=== PATIENT | male | born 1995 | race Caucasian/White ===

== ENCOUNTER 2019-10-21 18:35 | Emergency (ER) | payer SELFPAY ==
[2019-10-21 18:41] VITALS: BP 132/84
[2019-10-21] MEDS ORDERED: LIDOCAINE TOPICAL 4% 50 ML BOTTLE MM STA (19:03)
[2019-10-21] MEDS ORDERED: PENICILLIN VK 250 MG TABLET PO STA (19:48)
[2019-10-21] MEDS ORDERED: IBUPROFEN 800 MG TABLET PO STA (19:48)
--- NOTE | 2019-10-21 19:50 | ED Physician Documentation ---
History of Present Illness - Stated complaint Stated Complaint: TOOTH PX - Chief complaint Chief Complaint: Heent - History obtained from History obtained from: Patient, Family - History of Present Illness Timing: How many weeks ago (several) Pain level max: 6 Pain level now: 6 - Additonal information Additional information: Patient states that he has chronic dental issues. States his left lower molar is infected. Increasing pain. He has been able unable to see his dentist yet. No fevers. No facial swelling. No swelling under the jawline or tongue. Worse with eating and drinking. Nothing makes it better Review of Systems Constitutional: denies: Fever, Chills GI: denies: Vomiting Skin: denies: Rash PD PAST MEDICAL HISTORY - Past Medical History Past Medical History: Yes HEENT: Other - Past Surgical History Past Surgical History: Yes HEENT: Other - Present Medications Home Medications: Ambulatory Orders Medication Instructions Recorded Confirmed Clindamycin [Cleocin] 300 mg PO TID 5 Days capsule 05/01/16 Penicillin V Potassium 500 mg PO Q6HR #40 tablet 10/21/19 - Allergies Allergies/Adverse Reactions: Allergies Allergy/AdvReac Type Severity Reaction Status Date / Time No Known Drug Allergies Allergy Verified 10/21/19 18:37 - Social History Does the pt smoke?: Yes Smoking Status: Current every day smoker Does the pt drink ETOH?: Yes Does the pt have substance abuse?: No - Immunizations Immunizations are current?: Yes Immunizations: TDAP >10years/unknown - POLST Patient has POLST: No PD ED PE NORMAL - Vitals Vital signs reviewed: Yes - General General: Alert and oriented X 3, No acute distress - HEENT HEENT: Moist mucous membranes - Neck Neck: Supple, no meningeal sign - Cardiac Cardiac: RRR - Respiratory Respiratory: No respiratory distress, Clear bilaterally - Derm Derm: Warm and dry - Neuro Neuro: Alert and oriented X 3 PD ED PE EXPANDED - HEENT HEENT Visual: 1 - tenderness (Diffuse dental decay. No gingival swelling.No drainable abscess.) Results - Vitals Vitals: Vital Signs - 24 hr 10/21/19 18:38 Temperature 36.8 C Heart Rate 137 H Respiratory 16 Rate Blood Pressure 132/84 H O2 Saturation 99 Oxygen O2 Source Room air PD MEDICAL DECISION MAKING - ED course Complexity details: considered differential, d/w patient, d/w family ED course: 24-year-old male presents with dental pain. Will place on antibiotics for home. Well-appearing, nontoxic. Afebrile. No Ludewig's angina. No facial swelling or cellulitis. Patient counseled regarding signs and symptoms for which I believe and urgent re-evaluation would be necessary. Patient with good understanding of and agreement to plan and is comfortable going home at this time This document was made in part using voice recognition software. While efforts are made to proofread this document, sound alike and grammatical errors may occur. Departure - Departure Disposition: 01 Home, Self Care Clinical Impression: Dental abscess Condition: Good Instructions: ED Abscess Dental Follow-Up: your,dentist within 1 week [Other] Prescriptions: Penicillin V Potassium 500 mg PO Q6HR #40 tablet Comments: Take all antibiotics until gone. Return if you worsen. Follow-up with your dentist within 1 week. Discharge Date/Time: 10/21/19 19:55
== END 2019-10-21 19:55 | disposition home or self-care (01) ==
LOC: ED 18:35
DX: K04.7 Periapical abscess without sinus (principal); K02.9 Dental caries, unspecified; F17.200 Nicotine dependence, unspecified, uncomplicated
CPT/HCPCS: 99282; 99284; A9270

== ENCOUNTER 2020-01-22 00:51 | Outpatient (CLI) | payer SELFPAY | END 2020-01-22 00:52 | disposition EMS.NT | LOC: EMS 00:51 | PROVIDERS: ATTEND Surgery | DX: M54.5 Low back pain (principal) ==

== ENCOUNTER 2020-01-22 01:45 | Emergency (ER) | payer SELFPAY ==
--- NOTE | 2020-01-22 02:00 | ED Physician Documentation ---
History of Present Illness - Stated complaint Stated Complaint: BK PX - Chief complaint Chief Complaint: Back Pain - History obtained from History obtained from: Patient (the patient is a 24 y/o m who p/w sudden onset of right flank pain that radiates to the groin with dysuria and urinary frequency. denies any hx of previous similar episodes. reports nausea. denies any other symptoms.) Review of Systems Constitutional: reports: Reviewed and negative Eyes: reports: Reviewed and negative Ears: reports: Reviewed and negative Nose: reports: Reviewed and negative Throat: reports: Reviewed and negative Cardiac: reports: Reviewed and negative Respiratory: reports: Reviewed and negative GI: reports: Reviewed and negative : reports: Hesitancy, Other (right flank pain) Skin: reports: Reviewed and negative Musculoskeletal: reports: Reviewed and negative Neurologic: reports: Reviewed and negative Psychiatric: reports: Reviewed and negative Endocrine: reports: Reviewed and negative Immunocompromised: reports: Reviewed and negative PD PAST MEDICAL HISTORY - Past Medical History HEENT: Other Psych: Anxiety - Past Surgical History Past Surgical History: Yes HEENT: Other - Present Medications Home Medications: Ambulatory Orders Medication Instructions Recorded Confirmed Clindamycin [Cleocin] 300 mg PO TID 5 Days capsule 05/01/16 Penicillin V Potassium 500 mg PO Q6HR #40 tablet 10/21/19 Hydrocodone/Acetaminophen [[place] 1 each PO Q6HR PRN #10 tablet 01/22/20 5-325 Tablet] Ondansetron Odt [Zofran] 4 mg TL Q6H PRN #10 tablet 01/22/20 Tamsulosin HCl [Flomax] 0.4 mg PO DAILY #7 cap.er.24h 01/22/20 - Allergies Allergies/Adverse Reactions: Allergies Allergy/AdvReac Type Severity Reaction Status Date / Time No Known Drug Allergies Allergy Verified 01/22/20 01:52 - Social History Does the pt smoke?: Yes Smoking Status: Current every day smoker Does the pt drink ETOH?: Yes Does the pt have substance abuse?: No - Immunizations Immunizations are current?: Yes Immunizations: TDAP >10years/unknown - POLST Patient has POLST: No PD ED PE NORMAL - Vitals Vital signs reviewed: Yes - General General: Alert and oriented X 3, No acute distress, Well developed/nourished - HEENT HEENT: Atraumatic, PERRL, Moist mucous membranes - Neck Neck: Supple, no meningeal sign, No JVD - Cardiac Cardiac: RRR, No murmur, Strong equal pulses - Respiratory Respiratory: No respiratory distress, Clear bilaterally - Abdomen Abdomen: Normal bowel sounds, Soft, Non tender, Non distended, No organomegaly, Other (+ for right sided cva tenderness) - Male Male : Other (testicles descended bilaterally, no blood at the urethral meatu s, no inguinal massed or lad.) - Derm Derm: Warm and dry - Extremities Extremities: No deformity - Neuro Neuro: Alert and oriented X 3 - Psych Psych: Normal mood, Normal affect Results - Vitals Vitals: Vital Signs - 24 hr 01/22/20 01/22/20 01:50 03:05 Temperature 36.9 C Heart Rate 87 72 Respiratory 20 16 Rate Blood Pressure 131/89 H 125/80 O2 Saturation 98 96 Oxygen O2 Source Room air - Labs Labs: Laboratory Tests 01/22/20 01/22/20 01/22/20 02:00 02:00 02:00 WBC 16.7 H RBC 5.80 Hgb 17.1 Hct 49.6 MCV 85.5 MCH 29.5 MCHC 34.5 RDW 11.9 L Plt Count 336 MPV 10.3 Neut # (Auto) 13.0 H Lymph # (Auto) 2.5 [place] # (Auto) 0.7 Eos # (Auto) 0.3 Baso # (Auto) 0.1 Absolute Nucleated RBC 0.00 Nucleated RBC % 0.0 Sodium 137 Potassium 3.4 L Chloride 104 Carbon Dioxide 25 Anion Gap 8.0 BUN 12 Creatinine 0.9 Estimated GFR (MDRD) 104 Glucose 135 H Calcium 9.2 Total Bilirubin 0.5 AST 24 ALT 55 Alkaline Phosphatase 73 Total Protein 7.7 Albumin 4.5 Globulin 3.2 Albumin/Globulin Ratio 1.4 Lipase 24 Urine Color DARK YELLOW Urine Clarity CLEAR Urine pH 6.0 Ur Specific [place] >=1.030 H Urine Protein TRACE Urine Glucose (UA) NEGATIVE Urine Ketones NEGATIVE Urine Occult Blood LARGE H Urine Nitrite NEGATIVE Urine Bilirubin NEGATIVE Urine Urobilinogen 0.2 (NORMAL) Ur Leukocyte Esterase NEGATIVE Urine RBC TNTC H Urine WBC 0-3 Ur Squamous Epith Cells NONE SEEN Urine Bacteria None Seen Ur Microscopic Review INDICATED Urine Culture Comments NOT INDICATED PD MEDICAL DECISION MAKING - ED course Complexity details: re-evaluated patient (03:32 pain resolved. patient tolerated po challenge, noted that patient has a leukocytosis, no fever, pain controlled, able to void without complication. will follow up with pcp as needed or return to the ed with fevers or any concerns. ), considered differential (nephrolithiasis) Departure - Departure Disposition: 01 Home, Self Care Clinical Impression: Kidney stone on right side Condition: Stable Instructions: Kidney Stones Follow-Up: your, doctor [Other] Prescriptions: Hydrocodone/Acetaminophen [[place] 5-325 Tablet] 1 each PO Q6HR PRN #10 tablet PRN Reason: Pain Ondansetron Odt [Zofran] 4 mg TL Q6H PRN #10 tablet PRN Reason: Nausea / Vomiting Tamsulosin HCl [Flomax] 0.4 mg PO DAILY #7 cap.er.24h
[2020-01-22] MEDS ORDERED: ONDANSETRON 4 MG/2 ML VIAL IVP STA (02:07)
[2020-01-22] MEDS ORDERED: SODIUM CHLORIDE 0.9% 1,000 ML IV ONE ×2 (02:07→03:12)
[2020-01-22] MEDS ORDERED: KETOROLAC 30 MG/ML VIAL IVP STA (02:07)
[2020-01-22 02:13] LABS: BASOPHILS # (AUTO) 0.1 10^3/uL (0.0-0.1); BASOPHILS % (AUTO) 0.7 %; EOSINOPHILS # (AUTO) 0.3 10^3/uL (0.0-0.7); EOSINOPHILS % (AUTO) 1.8 %; GLUCOSE, URINE (UA) NEGATIVE (NEGATIVE); HGB - HEMOGLOBIN 17.1 g/dL (14.0-18.0); KETONES,URINE (UA) NEGATIVE (NEGATIVE); LEUKOCYTE ESTERASE, URINE NEGATIVE (NEGATIVE); LYMPHOCYTES # (AUTO) 2.5 10^3/uL (1.5-3.5); LYMPHOCYTES % (AUTO) 14.6 %; MEAN CORPUSCULAR HEMOGLOBIN 29.5 pg (27.0-31.0); MEAN CORPUSCULAR HGB CONC 34.5 g/dL (32.0-36.0); MEAN CORPUSCULAR VOLUME 85.5 fL (80.0-94.0); MEAN PLATELET VOLUME 10.3 fL (7.4-11.4); MONOCYTES # (AUTO) 0.7 10^3/uL (0.0-1.0); MONOCYTES % (AUTO) 4.4 %; NEUTROPHILS % (AUTO) 77.8 %; NITRITE,URINE NEGATIVE (NEGATIVE); OCCULT BLOOD,URINE LARGE (NEGATIVE); PLT - PLATELET COUNT 336 10^3/uL (130-450); PROTEIN,URINE TRACE mg/dL (NEGATIVE); RED CELL DISTRIBUTION WIDTH 11.9 % (12.0-15.0); UROBILINOGEN,URINE 0.2 (NORMAL) E.U./dL (NORMAL); WHITE BLOOD COUNT 16.7 x10^3/uL (4.8-10.8)
[2020-01-22 02:21] LABS: BILIRUBIN,URINE NEGATIVE (NEGATIVE); CLARITY,URINE CLEAR (CLEAR); ICTOTEST,URINE NEGATIVE
[2020-01-22 02:22] LABS: BACTERIA,URINE None Seen /HPF (None Seen); RBC,URINE TNTC /HPF (0-5); SQUAMOUS EPITHELIAL CELL,UR NONE SEEN (<= Few)
[2020-01-22 02:27] LABS: ALBUMIN 4.5 g/dL (3.2-5.5); ALBUMIN/GLOBULIN RATIO 1.4 (1.0-2.2); BILIRUBIN,TOTAL 0.5 mg/dL (0.2-1.0); CALCIUM 9.2 mg/dL (8.5-10.3); CREATININE 0.9 mg/dL (0.6-1.2); TOTAL PROTEIN 7.7 g/dL (6.7-8.2)
--- NOTE | 2020-01-22 02:41 | CT Report ---
Reason: right flank pain Procedure Date: 01/22/2020 Accession Number: [id number] / [id number] Procedure: CT - Abdomen/Pelvis WO CPT Code: Final Report FULL RESULT: EXAM: CT ABDOMEN AND PELVIS (CT KUB) EXAM DATE: 01/22/2020 02:25 AM. CLINICAL HISTORY: Right flank pain. COMPARISONS: ABDOMEN/PELVIS W/ 08/28/2015 8:01 PM. TECHNIQUE: Routine axial helical CT imaging was performed through the abdomen and pelvis without IV contrast. Reconstructions: Coronal and sagittal. In accordance with CT protocol optimization, one or more of the following dose reduction techniques were utilized for this exam: automated exposure control, adjustment of mA and/or KV based on patient size, or use of iterative reconstructive technique. FINDINGS: Lung Bases: Unremarkable. Right Kidney/Ureter: Mild right hydronephrosis and hydroureter, with a 3 mm calculus at the right ureterovesicular junction. No additional upper tract calculi appreciated. Left Kidney/Ureter: No stones, hydronephrosis, or hydroureter. No perinephric fat stranding. Other Solid Organs: Noncontrast images of the solid organs are grossly unremarkable. Gallbladder/Bile Ducts: Unremarkable. Peritoneal Cavity: No free fluid, free air or evelin adenopathy. Bowel is grossly unremarkable. Normal appendix. Pelvic Organs: No bladder stones or wall thickening. Noncontrast images of the visualized pelvic organs are unremarkable. Vasculature: Unremarkable. Other: None. IMPRESSION: 3 mm calculus at the right ureterovesicular junction, producing mild right hydronephrosis. RADIA
[2020-01-22] MEDS ORDERED: HYDROmorphone 2 MG/ML VIAL IVP STA (02:48)
[2020-01-22 03:40] VITALS: BP 112/53
== END 2020-01-22 03:40 | disposition home or self-care (01) ==
LOC: ED 01:45
DX: N13.2 Hydronephrosis with renal and ureteral calculous obstruction (principal); F17.210 Nicotine dependence, cigarettes, uncomplicated
CPT/HCPCS: 36415; 74176; 80053; 81001; 83690; 85025; 96361; 96374; 96375; 99283; 99284; J1170; 81003; 87086

== ENCOUNTER 2020-03-29 01:27 | Emergency (ER) | payer MEDICAID ==
--- NOTE | 2020-03-29 01:31 | ED Physician Documentation ---
PD HPI BACK PAIN - Stated complaint Stated Complaint: BACK PX - History obtained from History obtained from: Patient - History of Present Illness Timing - onset: Yesterday Timing - details: Gradual onset, Intermittant Pain level max: 3 Pain level now: 1 Location: Right Quality: Pain Associated symptoms: No: Fever, Hematuria Improves with: Nothing Worsened by: Other (no exacerbating factors) Similar symptoms before: Other (somewhat similar to renal colic he had 2 months ago) - Additional information Additional information: c/o right flank pain, intermittent/episodic since yesterday. he says it feels similar in location to renal colic for which he was T+R from this ED 2 months ago, but the pain he has been having since yesterday is much milder than in January and has been controlled with tylenol. Review of Systems Constitutional: denies: Fever GI: denies: Abdominal Pain, Nausea, Vomiting : reports: Frequency. denies: Dysuria, Hematuria Skin: denies: Rash Musculoskeletal: denies: Back pain PD PAST MEDICAL HISTORY - Past Medical History Past Medical History: Yes : Kidney stones HEENT: Other Psych: Anxiety - Past Surgical History Past Surgical History: Yes HEENT: Other - Present Medications Home Medications: Ambulatory Orders Medication Instructions Recorded Confirmed Clindamycin [Cleocin] 300 mg PO TID 5 Days capsule 05/01/16 Penicillin V Potassium 500 mg PO Q6HR #40 tablet 10/21/19 Hydrocodone/Acetaminophen [[place] 1 each PO Q6HR PRN #10 tablet 01/22/20 5-325 Tablet] Ondansetron Odt [Zofran] 4 mg TL Q6H PRN #10 tablet 01/22/20 Tamsulosin HCl [Flomax] 0.4 mg PO DAILY #7 cap.er.24h 01/22/20 - Allergies Allergies/Adverse Reactions: Allergies Allergy/AdvReac Type Severity Reaction Status Date / Time No Known Drug Allergies Allergy Verified 01/22/20 01:52 - Social History Does the pt smoke?: Yes Smoking Status: Current every day smoker Does the pt drink ETOH?: Yes Does the pt have substance abuse?: No - Immunizations Immunizations are current?: Yes Immunizations: TDAP >10years/unknown - POLST Patient has POLST: No PD ED PE NORMAL - Vitals Vital signs reviewed: Yes - General General: Alert and oriented X 3, No acute distress, Well developed/nourished - Abdomen Abdomen: Soft, Non tender, Non distended - Back Back: No CVA TTP - Derm Derm: No rash Results - Vitals Vitals: Vital Signs - 24 hr 03/29/20 01:30 Temperature 36.9 C Heart Rate 111 H Respiratory 16 Rate Blood Pressure 133/100 H O2 Saturation 97 Oxygen O2 Source Room air - Labs Labs: Laboratory Tests 03/29/20 01:50 Urine Color YELLOW Urine Clarity CLEAR Urine pH 6.0 Ur Specific [place] >=1.030 H Urine Protein TRACE Urine Glucose (UA) NEGATIVE Urine Ketones 15 H Urine Occult Blood NEGATIVE Urine Nitrite NEGATIVE Urine Bilirubin NEGATIVE Urine Urobilinogen 1 (NORMAL) Ur Leukocyte Esterase NEGATIVE Ur Microscopic Review NOT INDICATED Urine Culture Comments NOT INDICATED PD MEDICAL DECISION MAKING - ED course Complexity details: reviewed old records, reviewed results, re-evaluated patient, considered differential, d/w patient ED course: patient is in NAD and has benign abdominal exam, as well as no CVA tenderness. He says acetaminophen has been controlling his pain, and he declines pain medications in ED. CT from previous visit (2 months ago) showed a 3mm right UVJ stone and no other renal calculi. It is unlikely that his pain is from the same stone (would likely have passed over this much time, and he denies symptoms between previous ED visit and yesterday). It would also be unlikely that he formed new calculi since then. His UA is negative for hematuria , leukocytes, nitrates. Further emergent testing not indicated at this time, instructed to return if worse Departure - Departure Disposition: 01 Home, Self Care Clinical Impression: Flank pain Condition: Good Instructions: ED Flank Pain Uncertain Cause Discharge Date/Time: 03/29/20 02:15
[2020-03-29 01:36] VITALS: BP 133/100
[2020-03-29 02:02] LABS: GLUCOSE, URINE (UA) NEGATIVE (NEGATIVE); KETONES,URINE (UA) 15 mg/dL (NEGATIVE); LEUKOCYTE ESTERASE, URINE NEGATIVE (NEGATIVE); NITRITE,URINE NEGATIVE (NEGATIVE); OCCULT BLOOD,URINE NEGATIVE (NEGATIVE); PROTEIN,URINE TRACE mg/dL (NEGATIVE); UROBILINOGEN,URINE 1 (NORMAL) E.U./dL (NORMAL)
[2020-03-29 02:03] LABS: CLARITY,URINE CLEAR (CLEAR)
[2020-03-29 02:07] LABS: BILIRUBIN,URINE NEGATIVE (NEGATIVE); ICTOTEST,URINE NEGATIVE
== END 2020-03-29 02:15 | disposition home or self-care (01) ==
LOC: ED 01:27
DX: R10.9 Unspecified abdominal pain (principal); F17.200 Nicotine dependence, unspecified, uncomplicated
CPT/HCPCS: 81001; 81003; 87086; 99283

== ENCOUNTER 2020-10-12 09:09 | Emergency (ER) | payer MEDICAID ==
[2020-10-12 09:17] VITALS: BP 132/78
--- NOTE | 2020-10-12 09:25 | ED Physician Documentation ---
PD HPI LOWER EXT INJURY - Stated complaint Stated Complaint: RT FOOT LAC - Chief complaint Chief Complaint: Laceration - History obtained from History obtained from: Patient - Additional information Additional information: He dropped a glass picture frame on his foot today and has a skin avulsion from the right fourth toe. Tetanus was about a year ago. He hurts when he walks. No pain at rest. Review of Systems Constitutional: reports: Reviewed and negative Eyes: reports: Reviewed and negative Ears: reports: Reviewed and negative Nose: reports: Reviewed and negative PD PAST MEDICAL HISTORY - Past Medical History : Kidney stones HEENT: Other Psych: Anxiety - Past Surgical History Past Surgical History: Yes HEENT: Other - Present Medications Home Medications: Ambulatory Orders Medication Instructions Recorded Confirmed No Known Home Medications 10/12/20 10/12/20 - Allergies Allergies/Adverse Reactions: Allergies Allergy/AdvReac Type Severity Reaction Status Date / Time No Known Drug Allergies Allergy Verified 10/12/20 09:17 - Social History Does the pt smoke?: Yes Smoking Status: Current every day smoker Does the pt drink ETOH?: Yes Does the pt have substance abuse?: No - Immunizations Immunizations are current?: Yes Immunizations: TDAP >10years/unknown - POLST Patient has POLST: No PD ED PE NORMAL - Vitals Vital signs reviewed: Yes - General General: Alert and oriented X 3, No acute distress - Extremities Extremities: Other (He has a minor shave avulsion of the tip of the skin of the right fourth toe without active bleeding. Just a bit of the nail is gone to.) - Neuro Neuro: Alert and oriented X 3, Normal speech Results - Vitals Vitals: Vital Signs - 24 hr 10/12/20 09:12 Temperature 36.6 C Heart Rate 84 Respiratory 16 Rate Blood Pressure 132/78 H O2 Saturation 99 Oxygen O2 Source Room air PD MEDICAL DECISION MAKING - ED course ED course: He is a shave avulsion just barely through the dermis of the right fourth toe. It was irrigated and dressed by the tech and he was given a fracture shoe. He declined pain medication. Departure - Departure Disposition: 01 Home, Self Care Clinical Impression: Avulsion, skin Condition: Good Record reviewed to determine appropriate education?: Yes Instructions: ED Wound Care Comments: You can remove the dressing, at least daily, then wash with soap and water and keep it covered with a Band-Aid. Use the fracture shoe as needed to keep the toe from rubbing. Return as needed for new or worsening symptoms. Forms: Activity restrictions
== END 2020-10-12 09:40 | disposition home or self-care (01) ==
LOC: ED 09:09
DX: S91.214A Laceration without foreign body of right lesser toe(s) with damage to nail, initial encounter (principal); W20.8XXA Other cause of strike by thrown, projected or falling object, initial encounter; F17.200 Nicotine dependence, unspecified, uncomplicated
CPT/HCPCS: 99282

== ENCOUNTER 2020-11-14 19:02 | Outpatient (CLI) | payer MEDICAID | END 2020-11-14 19:03 | disposition home or self-care (01) | LOC: COV 19:02 | PROVIDERS: ATTEND Family Medicine | DX: R05 Cough (principal); R53.83 Other fatigue; R07.0 Pain in throat; R43.9 Unspecified disturbances of smell and taste; R09.81 Nasal congestion; Z20.822 Contact with and (suspected) exposure to COVID-19 ==

== ENCOUNTER 2021-07-16 22:04 | Emergency (ER) | payer MEDICAID ==
--- NOTE | 2021-07-16 23:02 | ED Physician Documentation ---
History of Present Illness - Stated complaint Stated Complaint: LIGHT HEADED, CP/COUGH/SORE THROAT - Chief complaint Chief Complaint: General - History obtained from History obtained from: Patient - History of Present Illness Timing: How many days ago (3-4) Improved by: no ameliorating factors Worsened by: no exacerbating factors - Additonal information Additional information: c/o 3-4 days of [employer] cough, MEND[place]ZA, sore throat, runny nose and nasal congestion. denies fever. He is not COVID vaccinated. He was recently at a very large wedding with approximately 200 people in attendance. Review of Systems Constitutional: denies: Fever, Chills, Sweats Nose: reports: Rhinorrhea / runny nose, Congestion. denies: Sinus pressure / pain Cardiac: denies: Chest pain / pressure Respiratory: reports: Dyspnea, Cough. denies: Hemoptysis, Wheezing GI: reports: Reviewed and negative Neurologic: reports: Headache (mild, generalized) PD PAST MEDICAL HISTORY - Past Medical History Past Medical History: Yes Cardiovascular: None Respiratory: None Neuro: None Endocrine/Autoimmune: None GI: None : Kidney stones HEENT: Other Psych: Anxiety Musculoskeletal: None Derm: None - Past Surgical History Past Surgical History: Yes HEENT: Other - Present Medications Home Medications: Ambulatory Orders Medication Instructions Recorded Confirmed No Known Home Medications 10/12/20 07/16/21 - Allergies Allergies/Adverse Reactions: Allergies Allergy/AdvReac Type Severity Reaction Status Date / Time No Known Drug Allergies Allergy Verified 07/16/21 22:10 - Social History Does the pt smoke?: Yes Smoking Status: Current every day smoker Does the pt drink ETOH?: Yes Does the pt have substance abuse?: No - Immunizations Immunizations are current?: Yes Immunizations: TDAP >10years/unknown - POLST Patient has POLST: No PD ED PE NORMAL - Vitals Vital signs reviewed: Yes - General General: Alert and oriented X 3, No acute distress, Well developed/nourished - HEENT HEENT: Moist mucous membranes, Pharynx benign - Neck Neck: Supple, no meningeal sign - Cardiac Cardiac: RRR, No murmur - Respiratory Respiratory: No respiratory distress, Clear bilaterally Results - Vitals Vitals: Oxygen O2 Source Room air - Labs Labs: Laboratory Tests 07/16/21 22:31 Nasal Adenovirus (PCR) NOT DETECTED Nasal B. parapertussis DNA (PCR) NOT DETECTED Nasal Coronavir 229E PCR NOT DETECTED Nasal Coronavir HKU1 PCR NOT DETECTED Nasal Coronavir NL63 PCR NOT DETECTED Nasal Coronavir OC43 PCR NOT DETECTED Nasal Enterovir/Rhinovir PCR NOT DETECTED Nasal Influenza B PCR NOT DETECTED Nasal Influenza A PCR NOT DETECTED Nasal Parainfluen 1 PCR NOT DETECTED Nasal Parainfluen 2 PCR NOT DETECTED Nasal Parainfluen 3 PCR NOT DETECTED Nasal Parainfluen 4 PCR NOT DETECTED Nasal RSV (PCR) NOT DETECTED Nasal B.pertussis DNA PCR NOT DETECTED Nasal C.pneumoniae (PCR) NOT DETECTED Ty Human Metapneumo PCR NOT DETECTED Nasal M.pneumoniae (PCR) NOT DETECTED Nasal SARS-CoV-2 (PCR) NOT DETECTED PD MEDICAL DECISION MAKING - ED course Complexity details: reviewed results, re-evaluated patient, considered differential, d/w patient ED course: negative respiratory panel including COVID; suspect (other) viral URI. I advised him to get COVID vaccinated and he says he will consider doing so. Departure - Departure Disposition: 01 Home, Self Care Clinical Impression: Upper respiratory infection Condition: Good Instructions: ED Upper Resp Infec No Abx Tx Forms: Activity restrictions Discharge Date/Time: 07/17/21 00:58
[2021-07-17 00:29] LABS: CORONAVIRUS 229E-RESP PCR NOT DETECTED; CORONAVIRUS HKU1-RESP PCR NOT DETECTED; CORONAVIRUS NL63-RESP PCR NOT DETECTED; CORONAVIRUS OC43-RESP PCR NOT DETECTED; HUMAN METAPNEUMOVIRUS NOT DETECTED; INFLUENZA A- RESP PCR PANEL NOT DETECTED; INFLUENZA B - RESP PCR PANEL NOT DETECTED; PARAINFLUENZA VIRUS 1 NOT DETECTED; PARAINFLUENZA VIRUS 2 NOT DETECTED; PARAINFLUENZA VIRUS 3 NOT DETECTED; PARAINFLUENZA VIRUS 4 NOT DETECTED; RHINOVIRUS/ENTEROVIRUS NOT DETECTED; RSV- RESP PCR PANEL NOT DETECTED; SARS-CoV-2 -RESP PCR PANEL NOT DETECTED
[2021-07-17 00:30] LABS: B. PARAPERTUSSIS- RESP PCR PAN NOT DETECTED; B. PERTUSSIS- RESP PCR PANEL NOT DETECTED; C. PNEUMONIAE- RESP PCR PANEL NOT DETECTED; M. PNEUMONIAE- RESP PCR PANEL NOT DETECTED
[2021-07-17 01:01] VITALS: BP 136/85
== END 2021-07-17 00:58 | disposition home or self-care (01) ==
LOC: ED 22:04
DX: J06.9 Acute upper respiratory infection, unspecified (principal); F17.200 Nicotine dependence, unspecified, uncomplicated; Z20.822 Contact with and (suspected) exposure to COVID-19
CPT/HCPCS: 0202U; 99282; 99283

== ENCOUNTER 2021-10-02 13:43 | Emergency (ER) | payer MEDICAID ==
[2021-10-02 13:49] VITALS: BP 145/87
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
[2021-10-02] MEDS ORDERED: IBUPROFEN 600 MG TABLET PO STA (15:52)
[2021-10-02] MEDS ORDERED: ACETAMINOPHEN 325 MG TABLET PO STA (15:52)
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
== END 2021-10-02 17:07 | disposition home or self-care (01) ==
LOC: ED 13:43
DX: S39.012A Strain of muscle, fascia and tendon of lower back, initial encounter (principal); M54.6 Pain in thoracic spine; M54.2 Cervicalgia; V43.52XA Car driver injured in collision with other type car in traffic accident, initial encounter; Y92.410 Unspecified street and highway as the place of occurrence of the external cause; F17.200 Nicotine dependence, unspecified, uncomplicated
CPT/HCPCS: 72125; 72128; 72131; 99283; 99284; A9270

== ENCOUNTER 2023-08-06 19:21 | Outpatient (CLI) | payer OTHER ==
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
== END 2023-08-06 19:22 | disposition home or self-care (01) ==
LOC: DI 19:21
PROVIDERS: ATTEND Registered Nurse
DX: M79.672 Pain in left foot (principal)

== ENCOUNTER 2023-10-29 17:00 | Outpatient (CLI) | payer OTHER ==
[2023-10-29 21:02] LABS: BILIRUBIN,URINE NEGATIVE (NEGATIVE); GLUCOSE, URINE (UA) NEGATIVE (NEGATIVE); KETONES,URINE (UA) NEGATIVE (NEGATIVE); LEUKOCYTE ESTERASE, URINE NEGATIVE (NEGATIVE); NITRITE,URINE NEGATIVE (NEGATIVE); OCCULT BLOOD,URINE NEGATIVE (NEGATIVE); PROTEIN,URINE NEGATIVE (NEGATIVE); UROBILINOGEN,URINE 0.2 (NORMAL) E.U./dL (NORMAL)
[2023-10-29 21:03] LABS: BASOPHILS # (AUTO) 0.1 10^3/uL (0.0-0.1); EOSINOPHILS # (AUTO) 0.3 10^3/uL (0.0-0.7); EOSINOPHILS % (AUTO) 3.8 %; HCT - HEMATOCRIT 48.6 % (42.0-52.0); HGB - HEMOGLOBIN 16.2 g/dL (14.0-18.0); LYMPHOCYTES # (AUTO) 2.9 10^3/uL (1.5-3.5); MEAN CORPUSCULAR HEMOGLOBIN 28.8 pg (27.0-31.0); MEAN CORPUSCULAR HGB CONC 33.3 g/dL (32.0-36.0); MEAN CORPUSCULAR VOLUME 86.3 fL (80.0-94.0); MEAN PLATELET VOLUME 10.3 fL (7.4-11.4); MONOCYTES # (AUTO) 0.6 10^3/uL (0.0-1.0); MONOCYTES % (AUTO) 6.2 %; NEUTROPHILS % (AUTO) 56.4 %; PLT - PLATELET COUNT 364 10^3/uL (130-450); RED BLOOD COUNT 5.63 10^6/uL (4.70-6.10); RED CELL DISTRIBUTION WIDTH 12.5 % (12.0-15.0); WHITE BLOOD COUNT 8.9 x10^3/uL (4.8-10.8)
[2023-10-29 21:13] LABS: ALBUMIN 4.6 g/dL (3.2-5.5); ALBUMIN/GLOBULIN RATIO 1.8 (1.0-2.2); BILIRUBIN,TOTAL 0.3 mg/dL (0.2-1.0); CALCIUM 9.8 mg/dL (8.5-10.3); CREATININE 0.7 mg/dL (0.6-1.3); POTASSIUM 4.1 mmol/L (3.5-4.5); TOTAL PROTEIN 7.1 g/dL (6.4-8.9)
[2023-10-29 21:40] LABS: CLARITY,URINE CLEAR (CLEAR)
[2023-10-29 21:43] LABS: WBC,URINE 0-3 /HPF (0-3)
[2023-10-29 21:44] LABS: BACTERIA,URINE None Seen /HPF (None Seen); RBC,URINE 0-5 /HPF (0-5); SQUAMOUS EPITHELIAL CELL,UR NONE SEEN (<= Few)
== END 2023-10-29 17:15 | disposition home or self-care (01) ==
LOC: LAB.N 17:00
PROVIDERS: ATTEND Nurse Practitioner
DX: R10.9 Unspecified abdominal pain (principal)
CPT/HCPCS: 36415; 80053; 81001; 82150; 83690; 85025; 87086

== ENCOUNTER 2023-11-05 17:36 | Emergency (ER) | payer OTHER ==
[2023-11-05 17:48] VITALS: BP 136/84; O2SAT 99
--- NOTE | 2023-11-05 18:21 | ED Physician Documentation ---
History of Present Illness - Stated complaint Stated Complaint: ABD PX - Chief complaint Chief Complaint: Abd Pain - History obtained from History obtained from: Patient - Additonal information Additional information: This is a very nice 28-year-old male who has no known past medical history. He presents today with intermittent pain on the right side of his abdomen and into the ribs. This has occurred over the past couple of weeks. He states he does not dive on the right side when he is playing pickle ball and does think he took a hard fall a couple weeks ago but did not feel like he got injured at that time. He states the pain is more "annoying" and not all that bothersome, he can continue his workday, he is eating without difficulty, no vomiting no fever. Occasional mild nausea but that does not stop him from eating. He denies any dysuria urgency or frequency, No diarrhea. He does have occasional constipation though this was present prior to the pain. The patient does state he has had a kidney stone in the past though it felt substantially worse than this pain does. He has not attempted any medication for this including ibuprofen or Tylenol. The patient also inquires about how to establish care with a PCP. He has never had a doctor, he does have insurance through his workplace and is [place] therefore I have instructed the patient how to call member services and get ass istance establishing primary care. Review of Systems Constitutional: reports: Reviewed and negative Eyes: reports: Reviewed and negative Ears: reports: Reviewed and negative Nose: reports: Reviewed and negative Throat: reports: Reviewed and negative Cardiac: reports: Reviewed and negative Respiratory: reports: Reviewed and negative GI: reports: Abdominal Pain, Nausea. denies: Abdominal Swelling, Vomiting, Constipation, Diarrhea : reports: Reviewed and negative PD PAST MEDICAL HISTORY - Past Medical History Past Medical History: Yes Cardiovascular: None Respiratory: None Neuro: None Endocrine/Autoimmune: None GI: None : Kidney stones HEENT: Other Psych: Anxiety Musculoskeletal: None Derm: None - Past Surgical History Past Surgical History: Yes HEENT: Other - Present Medications Home Medications: Ambulatory Orders Medication Instructions Recorded Confirmed No Known Home Medications 12/02/22 11/05/23 - Allergies Allergies/Adverse Reactions: Allergies Allergy/AdvReac Type Severity Reaction Status Date / Time No Known Drug Allergies Allergy Verified 11/05/23 17:47 - Social History Does the pt smoke?: No Smoking Status: Never smoker Does the pt drink ETOH?: No Does the pt have substance abuse?: No - Immunizations Immunizations are current?: Yes Immunizations: TDAP >10years/unknown - POLST Patient has POLST: No PD ED PE NORMAL - Vitals Vital signs reviewed: Yes - General General: Alert and oriented X 3, No acute distress, Well developed/nourished - HEENT HEENT: Atraumatic, Moist mucous membranes - Cardiac Cardiac: RRR, No murmur - Respiratory Respiratory: No respiratory distress, Clear bilaterally - Abdomen Abdomen: Normal bowel sounds, Soft, Non tender, Non distended - Back Back: No CVA TTP, No spinal TTP - Derm Derm: Normal color, Warm and dry, No rash Results - Vitals Vitals: Vital Signs - 24 hr 11/05/23 17:43 Temperature 36.1 C L Heart Rate 77 Respiratory 16 Rate Blood Pressure 136/84 H O2 Saturation 99 Oxygen O2 Source Room air PD Medical Decision Making - ED course Complexity details: reviewed results, considered differential ED course: 20-year-old male presents with right sided pain, from the lower abdomen, right flank into the lower ribs. It is intermittent and has been present for couple weeks. He is very well-appearing here on physical exam, cannot really reproduce any pain, certainly he has no pain in McBurney's point, may be very mild pain with palpation of his gallbladder no other areas of abdominal pain or peritoneal signs. He has mild tenderness of the lower ribs on the right. I discussed with patient that his symptoms may be related to muscle strain from diving, potentially mild gallstones, I have low suspicion for appendicitis, cholecystitis, kidney stones or UTI at this time. I do think the patient is stable for discharge home, he is encouraged to eat a low-fat diet the next few weeks, he can take Tylenol and ibuprofen as needed I discussed return precautions. Encouraged him to Establish primary care and I instructed him how he can do so through his insurance, [employer]. Departure - Departure Disposition: Home, Self Care Clinical Impression: Side pain Condition: Good Instructions: ED Abdominal Pain Unkn Cause Male Comments: Please call the member services number on the back of your insurance card to ask them about establishing a primary care provider. There is a [facility] in [place] though you can discuss if there is anything closer. It would be good to have a routine health maintenance exam, diabetes screening, cholesterol screening, and have a primary care provider going forward. You may have some gallstones and these tend to get irritated when you eat higher fat foods. I recommend that you adhere to a low-fat diet, and see if this helps improve your abdominal pain, you can take ibuprofen and Tylenol. If you have increasing pain or develop a fever and vomiting, please return to the ER. Forms: PCP List
[2023-11-05 18:36] LABS: BILIRUBIN,URINE NEGATIVE (NEGATIVE); GLUCOSE, URINE (UA) NEGATIVE (NEGATIVE); KETONES,URINE (UA) NEGATIVE (NEGATIVE); LEUKOCYTE ESTERASE, URINE NEGATIVE (NEGATIVE); NITRITE,URINE NEGATIVE (NEGATIVE); OCCULT BLOOD,URINE NEGATIVE (NEGATIVE); PH,URINE 6.5 PH (5.0-7.5); PROTEIN,URINE NEGATIVE (NEGATIVE); UROBILINOGEN,URINE 1 (NORMAL) E.U./dL (NORMAL)
[2023-11-05 18:40] LABS: CLARITY,URINE CLEAR (CLEAR)
== END 2023-11-05 18:40 | disposition home or self-care (01) ==
LOC: ED 17:36
DX: R10.31 Right lower quadrant pain (principal); R07.81 Pleurodynia
CPT/HCPCS: 81001; 81003; 87086; 99283

== ENCOUNTER 2023-12-25 00:18 | Emergency (ER) | payer OTHER ==
[2023-12-25 00:29] VITALS: O2SAT 98
--- NOTE | 2023-12-25 00:39 | ED Physician Documentation ---
PD HPI URI - Stated complaint Stated Complaint: HEAD/BACK PX/FEVER - Chief complaint Chief Complaint: Resp - History obtained from History obtained from: Patient - Additional information Additional information: 28-year-old male presents with 2 and half days of fever, headache, body aches. Has intermittently been taking Tylenol and Motrin for his symptoms without improvement in his fever. Reports temperature up to 102 Fahrenheit at home. Unknown if he has had any sick contacts, but did go to a [employer] over the weekend.Last dose of Tylenol at approximately 8 PM Review of Systems Constitutional: reports: Fever, Chills, Myalgias Throat: reports: Sore throat. denies: Dental pain / toothache, Oral lesions / sores Cardiac: denies: Chest pain / pressure, Palpitations Respiratory: reports: Cough. denies: Dyspnea, Wheezing GI: denies: Abdominal Pain, Nausea, Vomiting Skin: denies: Rash, Lesions, Abrasion (s) PD PAST MEDICAL HISTORY - Past Medical History Past Medical History: No Cardiovascular: None Respiratory: None Neuro: None Endocrine/Autoimmune: None GI: None : Kidney stones HEENT: Other Psych: Anxiety Musculoskeletal: None Derm: None - Past Surgical History Past Surgical History: Yes HEENT: Other - Present Medications Home Medications: Ambulatory Orders Medication Instructions Recorded Confirmed No Known Home Medications 12/02/22 11/05/23 - Allergies Allergies/Adverse Reactions: Allergies Allergy/AdvReac Type Severity Reaction Status Date / Time No Known Drug Allergies Allergy Verified 12/25/23 00:28 - Social History Does the pt smoke?: No Smoking Status: Never smoker Does the pt drink ETOH?: No Does the pt have substance abuse?: No - Immunizations Immunizations are current?: Yes Immunizations: TDAP >10years/unknown - POLST Patient has POLST: No PD ED PE NORMAL - Vitals Vital signs reviewed: Yes - General General: Alert and oriented X 3, No acute distress, Well developed/nourished - HEENT HEENT: Atraumatic, PERRL, EOMI, Ears normal, Moist mucous membranes, Pharynx benign - Neck Neck: Supple, no meningeal sign - Cardiac Cardiac: RRR, Strong equal pulses - Respiratory Respiratory: No respiratory distress, Clear bilaterally - Abdomen Abdomen: Soft, Non tender, Non distended - Derm Derm: Normal color, Warm and dry, No rash - Extremities Extremities: No deformity, No tenderness to palpate, Normal ROM s pain, No edema - Neuro Neuro: Alert and oriented X 3, expert medical writer 2-12 intact, No motor deficit, Normal speech Results - Vitals Vitals: Vital Signs - 24 hr 12/25/23 12/25/23 00:23 01:43 Temperature 37.4 C Heart Rate 108 H 88 Respiratory 20 18 Rate Blood Pressure 134/92 H 130/80 O2 Saturation 98 98 Oxygen O2 Source Room air - Labs Labs: Laboratory Tests 12/25/23 00:38 Nasal Influenza B PCR NOT DETECTED Nasal Influenza A PCR NOT DETECTED Nasal RSV (PCR) NOT DETECTED Nasal SARS-CoV-2 (PCR) NOT DETECTED PD Medical Decision Making - ED course Complexity details: reviewed results, re-evaluated patient, considered differential, d/w patient ED course: Well-appearing male with nonspecific symptoms suggestive of viral syndrome. He is well-hydrated, hemodynamically stable, no acute distress. Will swab for COVID, flu, RSV. Toradol for pain and fever. Patient negative for flu, COVID, RSV. Has received Toradol and is resting comfortably in bed, hemodynamically stable with unremarkable vitals. Patient advised of swab results, recommended Tylenol and Motrin for fever or pain as well as rest and plenty of fluids. Patient requested a note for work, which was provided Departure - Departure Disposition: 01 Home, Self Care Clinical Impression: Viral syndrome Condition: Stable Instructions: ED Viral Syndrome Comments: You may take 1000 mg of Tylenol and 400 mg of ibuprofen up to 4 times daily for fever or bodyaches. Make sure to drink plenty of fluids and get plenty of rest. Forms: PCP List Discharge Date/Time: 12/25/23 01:44
[2023-12-25] MEDS: KETOROLAC 30 MG/ML VIAL IM STA (00:57)
[2023-12-25 01:34] LABS: INFLUENZA A- RESP PCR PANEL NOT DETECTED; INFLUENZA B - RESP PCR PANEL NOT DETECTED; RSV- RESP PCR PANEL NOT DETECTED; SARS-CoV-2 -RESP PCR PANEL NOT DETECTED
[2023-12-25 01:49] VITALS: BP 130/80
== END 2023-12-25 01:44 | disposition home or self-care (01) ==
LOC: ED 00:18
DX: B34.9 Viral infection, unspecified (principal)
CPT/HCPCS: 87637; 96372; 99283

== ENCOUNTER 2024-07-30 03:36 | Emergency (ER) | payer OTHER ==
[2024-07-30 03:53] VITALS: BP 123/78; O2SAT 97
--- NOTE | 2024-07-30 04:07 | ED Physician Documentation ---
PD HPI URI - Stated complaint Stated Complaint: SORE THROAT - Chief complaint Chief Complaint: Heent - History obtained from History obtained from: Patient - Additional information Additional information: 29yM previously healthy p/w viral uri symptoms X 2-3 days with sore throat nonproductive cough and malaise. denies fever, ear pain, n/v/d abdominal pain, soa, cp. PD PAST MEDICAL HISTORY - Past Medical History Cardiovascular: None Respiratory: None Neuro: None Endocrine/Autoimmune: None GI: None : Kidney stones HEENT: Other Psych: Anxiety Musculoskeletal: None Derm: None - Past Surgical History Past Surgical History: Yes HEENT: Other - Present Medications Home Medications: Ambulatory Orders Medication Instructions Recorded Confirmed Dextromethorphan/Benzocaine 1 each PO TID PRN #20 lozenge 07/30/24 [Cepacol Sore Throat-Cough [place]] - Allergies Allergies/Adverse Reactions: Allergies Allergy/AdvReac Type Severity Reaction Status Date / Time No Known Drug Allergies Allergy Verified 07/30/24 03:50 - Social History Does the pt smoke?: No Smoking Status: Former smoker Does the pt drink ETOH?: No Does the pt have substance abuse?: No - Immunizations Immunizations are current?: Yes Immunizations: TDAP >10years/unknown - POLST Patient has POLST: No PD ED PE NORMAL - Vitals Vital signs reviewed: Yes - General General: Alert and oriented X 3, No acute distress, Well developed/nourished - HEENT HEENT: Atraumatic, PERRL, EOMI, Moist mucous membranes, Pharynx benign - Neck Neck: Supple, no meningeal sign - Cardiac Cardiac: RRR - Respiratory Respiratory: No respiratory distress, Clear bilaterally Results - Vitals Vitals: Vital Signs - 24 hr 07/30/24 03:45 Temperature 36.7 C Heart Rate 74 Respiratory 16 Rate Blood Pressure 123/78 O2 Saturation 97 Oxygen O2 Source Room air PD Medical Decision Making - ED course ED course: Well-appearing 29-year-old presents with viral URI symptoms for the past couple days. Symptomatic care discussed. Return precautions given. Work note provided upon request. Departure - Departure Disposition: 01 Home, Self Care Clinical Impression: Viral URI with cough Condition: Stable Instructions: ED Viral Syndrome Prescriptions: Dextromethorphan/Benzocaine [Cepacol Sore Throat-Cough [place]] 1 each PO TID PRN #20 lozenge PRN Reason: sore throat Comments: You were seen in the emergency department for viral upper respiratory symptoms. Prescription sent to [facility] in [place]. Please follow-up with your primary care provider and return to the emergency department if you have any new or worsening symptoms or other concerns. Forms: PCP List, Activity restrictions
[2024-07-30 04:14] LABS: RAPID STREP SCREEN Negative (Negative)
[2024-07-30 05:07] LABS: B. PARAPERTUSSIS- RESP PCR PAN NOT DETECTED; B. PERTUSSIS- RESP PCR PANEL NOT DETECTED; C. PNEUMONIAE- RESP PCR PANEL NOT DETECTED; CORONAVIRUS 229E-RESP PCR NOT DETECTED; CORONAVIRUS HKU1-RESP PCR NOT DETECTED; CORONAVIRUS NL63-RESP PCR NOT DETECTED; CORONAVIRUS OC43-RESP PCR NOT DETECTED; HUMAN METAPNEUMOVIRUS NOT DETECTED; INFLUENZA A- RESP PCR PANEL NOT DETECTED; INFLUENZA B - RESP PCR PANEL NOT DETECTED; M. PNEUMONIAE- RESP PCR PANEL NOT DETECTED; PARAINFLUENZA VIRUS 1 NOT DETECTED; PARAINFLUENZA VIRUS 2 NOT DETECTED; PARAINFLUENZA VIRUS 3 NOT DETECTED; PARAINFLUENZA VIRUS 4 NOT DETECTED; RHINOVIRUS/ENTEROVIRUS DETECTED; RSV- RESP PCR PANEL NOT DETECTED; SARS-CoV-2 -RESP PCR PANEL NOT DETECTED
== END 2024-07-30 04:15 | disposition home or self-care (01) ==
LOC: ED 03:36
DX: J06.9 Acute upper respiratory infection, unspecified (principal); Z87.891 Personal history of nicotine dependence
CPT/HCPCS: 87070; 87430; 87633; 99282; 99283